=== PATIENT | female | born 2000 | race African-American/Black ===

== ENCOUNTER 2024-04-13 10:46 | Outpatient (CLI) | payer BC, SELFPAY ==
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
== END 2024-04-13 10:47 | disposition home or self-care (01) ==
LOC: ANHIMG 10:59
PROVIDERS: PCP Nurse Practitioner; Visit Provider Nurse Practitioner
DX: M54.2 Cervicalgia (principal); M54.50 Low back pain, unspecified; V89.2XXA Person injured in unspecified motor-vehicle accident, traffic, initial encounter
CPT/HCPCS: 72040; 72100